=== PATIENT | male | born 1985 | race Caucasian/White ===

== ENCOUNTER → 2021-05-07 | Outpatient (CLI) | payer OTHER | LOC: KOH-I 05-04 12:15 | DX: M53.82 Other specified dorsopathies, cervical region (principal); M43.16 Spondylolisthesis, lumbar region; V89.2XXA Person injured in unspecified motor-vehicle accident, traffic, initial encounter; S12.400A Unspecified displaced fracture of fifth cervical vertebra, initial encounter for closed fracture; S12.500A Unspecified displaced fracture of sixth cervical vertebra, initial encounter for closed fracture; M43.12 Spondylolisthesis, cervical region | CPT/HCPCS: 72125 ==

== ENCOUNTER → 2021-05-10 | Outpatient (CLI) | payer OTHER | LOC: MRI 15:56 | DX: S12.040A Displaced lateral mass fracture of first cervical vertebra, initial encounter for closed fracture (principal); M43.19 Spondylolisthesis, multiple sites in spine; M48.02 Spinal stenosis, cervical region; M53.2X2 Spinal instabilities, cervical region | CPT/HCPCS: 72141 ==